=== PATIENT | female | born 1965 | race African-American/Black ===

== ENCOUNTER → 2018-02-22 | Outpatient (CLI) | payer OTHER | END | disposition home or self-care (01) | LOC: RAD 11:36 | DX: M25.511 Pain in right shoulder (principal) | CPT/HCPCS: 73030 ==

== ENCOUNTER 2019-07-09 15:37 | Emergency (ER) | payer OTHER ==
[~2019-07-09] VITALS: Ht 165.1 cm; Wt 61.2 kg
[2019-07-09 16:20] VITALS: BP 168/101
[2019-07-09] MEDS ORDERED: predniSONE 10 MG TABLET PO ONE (16:30)
[2019-07-09] MEDS ORDERED: ACETAMINOPHEN 500 MG TABLET PO ONE (16:30)
--- NOTE | 2019-07-09 16:57 | RAD ---
CHEST PA LATERAL Clinical indications: Fever and cough for 2 days. COMPARISON: None available. Findings: No acute lung infiltrate or pleural effusion or pulmonary edema or lung mass or pneumothorax is seen. The heart size, pulmonary vasculature, mediastinum and both mamadou are unremarkable. The osseous structures appear intact. Impression: No acute radiographic abnormality is seen. Electronically signed by: Rick Coleman MD (07/09/2019 4:54 PM) [facility]
[2019-07-09 17:12] LABS: INFLUENZA A PATIENT NEGATIVE (NEGATIVE); INFLUENZA B PATIENT NEGATIVE (NEGATIVE)
[2019-07-09] MEDS ORDERED: CEFD300C PO (17:34)
[2019-07-09] MEDS ORDERED: PRED50TA PO (17:34)
[2019-07-09] MEDS ORDERED: BENZ100C PO (17:34)
[2019-07-09] MEDS ORDERED: ALBU2.5V8 IH (17:34)
--- NOTE | 2019-07-09 17:34 | PHYS DOC ---
Past Medical History Past Medical History: Hypertension Past Surgical History: Alcohol Use: None Drug Use: None Adult General Chief Complaint Chief Complaint: COUGH HPI HPI Patient is a 53 year old female with history of hypertension who presents to the ED today complaining of fever and a cough that began 2 days ago. Review of Systems Review of Systems Constitutional: Reports fever Eyes: Denies change in visual acuity, redness, or eye pain [] HENT: Denies nasal congestion or sore throat [] Respiratory: Reports cough, denies shortness of breath [] Cardiovascular: No additional information not addressed in HPI [] GI: Denies abdominal pain, nausea, vomiting, bloody stools or diarrhea [] : Denies dysuria or hematuria [] Musculoskeletal: Denies back pain or joint pain [] Integument: Denies rash or skin lesions [] Neurologic: Denies headache, focal weakness or sensory changes [] All other systems were reviewed and found to be within normal limits, except as documented in this note. Current Medications Current Medications Current Medications Medications (Trade) Dose Ordered Sig/Zena Start Time Stop Time Status Last Admin Dose Admin Acetaminophen (Tylenol) 1,000 mg 1X ONCE 07/09/19 16:30 07/09/19 16:31 DC 07/09/19 16:34 1,000 MG Prednisone (Prednisone) 50 mg 1X ONCE 07/09/19 16:30 07/09/19 16:31 DC 07/09/19 16:34 50 MG Allergies Allergies Allergies Coded Allergies Type Severity Reaction Last Updated Verified diphenhydramine Allergy Unknown Anaphylaxis 11/19/14 No Physical Exam Physical Exam Constitutional: Well developed, well nourished, no acute distress, non-toxic appearance. [] HENT: Normocephalic, atraumatic, bilateral external ears normal, oropharynx moist, no oral exudates, nose normal. [] Eyes: PERRLA, EOMI, conjunctiva normal, no discharge. [] Neck: Normal range of motion, no tenderness, supple, no stridor. [] Cardiovascular:Heart rate regular rhythm, no murmur [] Lungs & Thorax: Bilateral breath sounds clear to auscultation [] Abdomen: Bowel sounds normal, soft, no tenderness, no masses, no pulsatile mass es. [] Skin: Warm, dry, no erythema, no rash. [] Back: No tenderness, no CVA tenderness. [] Extremities: No tenderness, no cyanosis, no clubbing, ROM intact, no edema. [] Neurologic: Alert and oriented X 3, normal motor function, normal sensory function, no focal deficits noted. [] Psychologic: Affect normal, judgement normal, mood normal. [] Current Patient Data Vital Signs Vital Signs Date Time Temp Pulse Resp B/P (MAP) Pulse Ox O2 Delivery O2 Flow Rate FiO2 07/09/19 16:20 102.8 116 16 168/101 (123) 96 Room Air 102.8 Lab Values Laboratory Tests Test 07/09/19 16:30 Influenza Type A Antigen Negative (NEGATIVE) Influenza Type B Antigen Negative (NEGATIVE) EKG EKG [] Radiology/Procedures Radiology/Procedures []PROCEDURE: CHEST PA & LATERAL CHEST PA LATERAL Clinical indications: Fever and cough for 2 days. COMPARISON: None available. Findings: No acute lung infiltrate or pleural effusion or pulmonary edema or lung mass or pneumothorax is seen. The heart size, pulmonary vasculature, mediastinum and both mamadou are unremarkable. The osseous structures appear intact. Impression: No acute radiographic abnormality is seen. Electronically signed by: Alex Coleman MD (07/09/2019 4:54 PM) [facility] DICTATED and SIGNED BY: ALEX COLEMAN MD DATE: 07/09/19 326 Course & Med Decision Making Course & Med Decision Making Pertinent Labs and Imaging studies reviewed. (See chart for details) This is a 53-year-old female patient presented to the ED today with fever and cough that began 2 days ago. Temperature 102.8 on arrival to the ED. Chest x- rays negative, negative for influenza A or B. Discharged with Cefdinir, prednisone and albuterol inhaler. Tylenol/Motrin for pain or fever. Dragon Disclaimer Dragon Disclaimer This electronic medical record was generated, in whole or in part, using a voice recognition dictation system. Departure Departure Impression: Primary Impression: Acute bronchitis Additional Impression: Fever Disposition: 01 HOME, SELF-CARE Condition: STABLE Referrals: Ulisses LOVING MD (PCP) follow with your doctor in 1-2 weeks Patient Instructions: Acute Bronchitis, Fever, Adult, [id number] Additional Instructions: You were evaluated in the emergency room for symptoms of bronchitis with a fever. Take the prescribed antibiotics until completed. Take Tylenol or Motrin for pain or fever. Push fluids. Rest. Follow-up with your doctor in 1-2 weeks Scripts Prednisone (PREDNISONE) 50 Mg Tablet 1 TAB PO DAILY, #5 TAB Prov: JORGE KATZ APRN 07/09/19 Benzonatate (TESSALON PERLE) 100 Mg Capsule 1 CAP PO TID, #30 CAP Prov: JORGE KATZ APRN 07/09/19 Albuterol Sulfate (Proair Hfa) 8.5 Gm Hfa.aer.ad 2 PUFF IH PRN Q4-6HRS PRN for wheezing for 21 Days, #1 INHALER 0 Refills Prov: JORGE KATZ APRN 07/09/19 Cefdinir (CEFDINIR) 300 Mg Capsule 1 CAP PO BID, #14 CAP Prov: JORGE KATZ APRN 07/09/19 Problem Qualifiers Primary Impression: Acute bronchitis Bronchitis organism: unspecified organism Qualified Codes: J20.9 - Acute bronchitis, unspecified Additional Impression: Fever Fever type: unspecified Qualified Codes: R50.9 - Fever, unspecified JORGE KATZ APRN Jul 09, 2019 17:34
== END 2019-07-09 17:52 | disposition home or self-care (01) ==
LOC: ER 15:37
DX: J20.9 Acute bronchitis, unspecified (principal); I10 Essential (primary) hypertension; Z88.5 Allergy status to narcotic agent
CPT/HCPCS: 71046; 87804; 99285; J7512

== ENCOUNTER → 2020-10-19 | Outpatient (CLI) | payer OTHER ==
[~2020-10-19] MED LIST: ALBU2.5V8 IH; BENZ100C PO; CEFD300C PO; PRED50TA PO
--- NOTE | 2020-10-19 15:19 | KCIC ---
EXAM: XR CHEST 2V 10/19/2020 11:47 AM CLINICAL INDICATION: Chest/clavicle pain mid sternal and bilateral clavicle pain when taking a deep breath. COMPARISON: Chest radiograph 07/09/2019 TECHNIQUE: PA and lateral views of the chest FINDINGS: The heart and mediastinum are normal. Lungs are well-expanded and clear. No consolidatio n, pleural effusion, or pneumothorax. Pulmonary vascularity is normal. The thoracic skeleton is int act. IMPRESSION: Normal chest radiograph. Electronically signed by: Consuelo Corona MD (10/19/2020 3:17 PM) [id number]
== END ==
LOC: KCIC 11:29
PROVIDERS: ATTEND Family Medicine
DX: R07.9 Chest pain, unspecified (principal); M89.8X1 Other specified disorders of bone, shoulder
CPT/HCPCS: 71046